=== PATIENT | female | born 1950 | race Caucasian/White ===

== ENCOUNTER 2019-06-27 06:19 | Day surgery (SDC) | payer MEDICARE, OTHER ==
[2019-06-27] VITALS (11 sets, daily range): BP systolic 100–150; BP diastolic 48–79
[~2019-06-27] VITALS: Ht 175.3 cm; Wt 120.2 kg
[2019-06-27] MEDS ORDERED: cefOXitin Sod 1 GM in D5W 55 ML IVPB ONE (07:00)
[2019-06-27] MEDS ORDERED: fentaNYL 100 mcg/2 mL IV ONE (07:17)
[2019-06-27] MEDS ORDERED: Midazolam 2mg/2ml Inj ONE (07:17)
[2019-06-27] MEDS ORDERED: cefOXitin 1gm Inj ONE (07:27)
--- NOTE | 2019-06-27 07:40 | Pre-Procedure Note/Attestation ---
Pre-Procedure Note/Attestation Complete Prior to Procedure Planned Procedure: not applicable Procedure Narrative: Dilation and curettage hysteroscopy Indications for Procedure Pre-Operative Diagnosis: post menopausal bleeding/ retained iud Attestation I attest that I discussed the nature of the procedure; its benefits; risks and complications; and alternatives (and the risks and benefits of such alternatives ), prior to the procedure, with the patient (or the patient's legal customer support representative). I attest that, if there was a reasonable possibility of needing a blood transfusion, the patient (or the patient's legal customer support representative) was given the [facility] standardized written summary, pursuant to the [facility] Blood Safety Act ([place] Health and Safety Code # 1645, as amended). I attest that I re-evaluated the patient just prior to the surgery and that there has been no change in the patient's H&P, except as documented below: Yolanda Sanford MD Jun 27, 2019 07:40
--- NOTE | 2019-06-27 07:40 | Anethesia Preoperative Eval ---
Anesthesia Pre-op PMH/ROS General Date of Evaluation: Jun 27, 2019 Time of Evaluation: 07:38 Anesthesiologist: benito ASA Score: ASA 3 Mallampati Score Class I : Soft palate, uvula, fauces, pillars visible Class II: Soft palate, uvula, fauces visible Class III: Soft palate, base of uvula visible Class IV: Only hard plate visible Mallampati Classification: Class II Surgeon: arcelia Diagnosis: post menapausal bleed Surgical Procedure: D&C; Hysteroscopy Anesthesia History: PONV Family History: no anesthesia problems Allergies: Coded Allergies: No Known Allergies (Unverified , 06/23/19) Medications: see eMAR Patient NPO?: Yes NPO Date: Jun 27, 2019 NPO Time: 00:01 Past Medical History Cardiovascular: Reports: HTN Pulmonary: Denies: asthma, COPD, JANAE, other Gastrointestinal/Genitourinary: Denies: GERD, CRI, ESRD, other Neurologic/Psychiatric: Denies: dementia, CVA, depression/anxiety, TIA, other Endocrine: Reports: DM; Denies: hypothyroidism, steroids, other HEENT: Denies: cataract (L), cataract (R), glaucoma, [place] (L), [place] (R), other Hematology/Immune: Denies: anemia, DVT, bleeding disorder, other Musculoskeletal/Integumentary: Denies: OA, RA, DJD, DDD, edema, other Other: obesity PSxH Narrative: c- scope Anesthesia Pre-op Phys. Exam Physician Exam Last Vital Signs Date Time Temp Pulse Resp B/P (MAP) Pulse Ox O2 Delivery O2 Flow Rate FiO2 06/27/19 06:57 Room Air 06/27/19 06:49 97.7 69 18 150/79 99 Constitutional: NAD Neurologic: CN 2-12 intact Cardiovascular: RRR Respiratory: CTA Gastrointestinal: S/NT/ND Airway Exam Mallampati Classification 2 Mallampati Score: Class II MO: full Neck: large TMD: 1fb ROM: full Dentures: no upper, no lower Anesthesia Pre-op A/P Studies Pre-op Studies: EKG - SR Risk Assessment & Plan Assessment: denies changes in health Plan: General - TIVA Status Change Before Surgery: No Pre-Antibiotics Drug: Mefoxitin Given Within 1 Hr of Incision: Yes Time Given: 07:55 Jerica Cordova OCCUPATIONAL ANALYST Jun 27, 2019 07:40
[2019-06-27] MEDS ORDERED: fentaNYL 100 mcg/2 mL IV PRN (07:45)
[2019-06-27] MEDS ORDERED: D5 1/2NS 1,000 ML IV SCH (07:45)
[2019-06-27] MEDS ORDERED: Tylenol #3 tab (300mg/30mg) ORAL PRN (07:45)
[2019-06-27] MEDS ORDERED: HYDROmorphone 1mg/ml Carpuject SUBQ PRN (07:45)
[2019-06-27] MEDS ORDERED: HYDROcodone/Acetamin 5/325 tab ORAL PRN (07:45)
[2019-06-27] MEDS ORDERED: Metoclopramide 10mg/2ml Inj IVP PRN ×2 (07:45)
[2019-06-27] MEDS ORDERED: DiphenhydrAMINE 50mg/ml Inj IVP PRN (07:45)
[2019-06-27] MEDS ORDERED: Sterile Water Irrig 1000ml IRRIG ONE (07:48)
[2019-06-27] MEDS ORDERED: NS Irrig 1000ml ONE (07:48)
[2019-06-27] MEDS ORDERED: LR 1000ml ONE (07:48)
[2019-06-27] MEDS ORDERED: NS Irrig 1000ml IRRIG ONE ×2 (07:48→08:16)
[2019-06-27] MEDS ORDERED: OMEGA 3 1,0001 EACH PO (08:01)
[2019-06-27] MEDS ORDERED: VITAMIN D1000 UNI1 ORAL (08:01)
[2019-06-27] MEDS ORDERED: BENICAR40 MG ORAL (08:01)
[2019-06-27] MEDS ORDERED: JANUMET XR 50-1 EAC1 ORAL (08:01)
[2019-06-27] MEDS ORDERED: Propofol 200mg/20ml IV ONE (08:12)
[2019-06-27] MEDS ORDERED: Lidocaine 1% MPF 10mg/ml 5ml ONE (08:12)
--- NOTE | 2019-06-27 08:24 | Brief Operative Note ---
Immediate Post Operative Note Operative Note Pre-op Diagnosis: post menopausal bleeding/ retained iud Procedure: Hysteroscopy/ removal of iud/ multiple polypectomies/ dilation and curettage Post-op Diagnosis: same Surgeon: Trish Care Director: Jerica Sow Anesthesia: general Specimen: yes Complications: none Fluids: crystalloid Estimated Blood Loss: minimal Drains: none Implant(s) used?: No Yolanda Sanford MD Jun 27, 2019 08:24
[2019-06-27] MEDS ORDERED: Ketorolac 30mg Inj ONE (08:29)
--- NOTE | 2019-06-27 08:36 | Immediate Post-Op Evaluation ---
Immediate Post-Op Evalulation Immediate Post-Op Evalulation Procedure: Hysteroscopy; D&C Date of Evaluation: Jun 27, 2019 Time of Evaluation: 08:35 IV Fluids: 600 Blood Pressure Systolic: 105 Blood Pressure Diastolic: 50 Pulse Rate: 74 Respiratory Rate: 14 O2 Sat by Pulse Oximetry: 100 Temperature (Fahrenheit): 99.0 Nausea: No Vomiting: No Complications none Patient Status: awake, reacts, patent Hydration Status: adequate Drug: mefoxitin Given Within 1 Hr of Incision: Yes Time Given: 07:55 Jerica Cordova [facility] Jun 27, 2019 08:36
--- NOTE | 2019-06-27 09:35 | 48 Hour Post Anesthesia Eval ---
Post Anesthesia Evaluation Procedure: Hysteroscopy; D&C Date of Evaluation: Jun 27, 2019 Time of Evaluation: 09:34 Blood Pressure Systolic: 131 0: 70 Pulse Rate: 65 Respiratory Rate: 14 O2 Sat by Pulse Oximetry: 99 Airway: patent Nausea: No Vomiting: No Hydration Status: adequate Cardiopulmonary Status: stable Mental Status/LOC: patient returned to baseline Post-Anesthesia Complications: none Follow-up care needed: N/A Jerica Cordova CRNA Jun 27, 2019 09:35
--- NOTE | 2019-06-27 15:15 | Operative Note - Dictated ---
DATE OF OPERATION: 06/27/2019 PREOPERATIVE DIAGNOSIS: Postmenopausal bleeding. POSTOPERATIVE DIAGNOSIS: Postmenopausal bleeding. PROCEDURE: Hysteroscopy, removal of IUD, multiple polypectomies, dilation and curettage. SURGEON: Yolanda Sanford M.D. LUNCH TRUCK DRIVER: None. ANESTHESIOLOGIST: Jerica Cordova CRNA. ESTIMATED BLOOD LOSS: Minimal. FLUIDS: Crystalloid. COMPLICATIONS: None. SPECIMENS: IUD, polyps, endometrial curettage, ECC. PROCEDURE IN DETAIL: After ensuring informed consent, the patient was taken to the operating room where general anesthesia was induced. The patient was sterilely prepped and draped. Weighted speculum was placed in the vagina. Cervix was easily dilated to an 8 Hegar dilator. Hysteroscope was placed inside the uterine cavity where IUD and multiple polyps were observed. Next, hysteroscope was withdrawn and using polyp forceps, first IUD was removed and then multiple polyps. Next, endometrial curettage was performed. Uterine cavity was clean on hysteroscopy. Also ECC was performed in the beginning. All specimens were sent to pathology. All instrument and lap counts were correct x2. The patient was taken to the recovery area, breathing on her own and in stable condition. Yolanda Sanford M.D. DR: SHANEKA JOB#: [id number] CC:
== END 2019-06-27 10:05 | disposition home or self-care (01) ==
LOC: SUR 06:19
DX: N95.0 Postmenopausal bleeding (principal); I10 Essential (primary) hypertension; E11.9 Type 2 diabetes mellitus without complications; E66.9 Obesity, unspecified; Z68.39 Body mass index [BMI] 39.0-39.9, adult
CPT/HCPCS: 58558; 58562; 82962; J0694; J1885; J2250; J2405; J2704; J2765; J3010; 94003; 94150